=== PATIENT | female | born 1945 | race Caucasian/White ===

== ENCOUNTER → 2017-07-29 | Outpatient (CLI) | payer MEDICARE, OTHER | END | disposition home or self-care (01) | LOC: ECHO 12:59 | DX: J44.1 Chronic obstructive pulmonary disease with (acute) exacerbation (principal); I08.1 Rheumatic disorders of both mitral and tricuspid valves; I27.20 Pulmonary hypertension, unspecified | CPT/HCPCS: 93306 ==

== ENCOUNTER 2018-03-03 11:14 | Inpatient (IN) | payer MEDICARE, OTHER ==
[~2018-03-03] VITALS: Ht 160 cm; Wt 65.1 kg
[2018-03-03] MEDS: IV NORMAL SALINE 1000ML BAG 1,000 ML IV SCH (00:45)
[~2018-03-03 11:14] MED LIST: SULF1TAB24 PO; [UNRECOGNIZED DRUG - CODE] MC
[2018-03-03 15:30] VITALS: BP 130/80
[2018-03-03 15:38] LABS: BASO % 0 % (0-3); EOS # 0.1 x10^3/uL (0.0-0.7); EOS % 1 % (0-3); HEMATOCRIT 39.2 % (36.0-47.0); HEMOGLOBIN 13.9 g/dL (12.0-15.5); LYMPH # 0.6 x10^3/uL (1.0-4.8); LYMPH % 8 % (24-48); MEAN CORPUSCULAR HEMOGLOBIN 31 pg (25-35); MEAN CORPUSCULAR HGB CONC 35 g/dL (31-37); MEAN CORPUSCULAR VOLUME 88 fL (79-100); MONO # 0.7 x10^3/uL (0.0-1.1); MONO % 9 % (0-9); NEUT # 6.9 x10^3uL (1.8-7.7); NEUT % 83 % (31-73); PLATELET COUNT 191 x10^3/uL (140-400); RED BLOOD COUNT 4.45 x10^6/uL (3.50-5.40); RED CELL DISTRIBUTION WIDTH 15.1 % (11.5-14.5); WHITE BLOOD COUNT 8.4 x10^3/uL (4.0-11.0)
[2018-03-03 16:02] LABS: ALBUMIN/GLOBULIN RATIO 0.7 (1.0-1.7); CALCIUM 9.7 mg/dL (8.5-10.1); CREATININE 1.9 mg/dL (0.6-1.0); GFR 26.1; POTASSIUM 5.4 mmol/L (3.5-5.1); TOTAL BILIRUBIN 0.4 mg/dL (0.2-1.0); TOTAL PROTEIN 7.6 g/dL (6.4-8.2)
[2018-03-03 20:18] VITALS: BP 110/72
[2018-03-03 23:49] VITALS: BP 118/74
[2018-03-04] MEDS: IV NORMAL SALINE 1000ML BAG 1,000 ML IV SCH ×2 (05:15→15:15)
[2018-03-04 05:25] LABS: CREATININE 1.7 mg/dL (0.6-1.0); GFR 29.6; POTASSIUM 4.5 mmol/L (3.5-5.1)
[2018-03-04 07:00] VITALS: BP 120/80
[2018-03-04 11:00] VITALS: BP 115/78
[2018-03-04] MEDS: LIDOCAINE (700MG/PATCH) PATCH. TD SCH (12:42)
[2018-03-04] MEDS: ACETAMINOPHEN 325 MG TABLET. PO PRN (12:43)
--- NOTE | 2018-03-04 13:03 | HP ---
ADMIT DATE: 03/03/2018 CHIEF COMPLAINT AND HISTORY OF PRESENT ILLNESS: This is a 73-year-old white female who is well known to me in followup in the office. The patient was admitted with profound and symptomatic hyponatremia with a sodium of 116 in the office. Only history I can obtain that would even explain this would be the fact that she has been drinking extra amounts of water, but only 8 glasses a day due to acute renal insufficiency for which she was last admitted that has not cleared completely. PAST MEDICAL HISTORY: Remarkable for probable chronic kidney disease, although I am not sure what has caused this. She was recently admitted with acute kidney injury and the creatinine has decreased down to the 1.7-1.9 range. She has ongoing edema, but likely venous stasis with sitting in a chair and holding it down all the time. She has a longstanding history of hypertension; however, has not required meds for the last few months due to uncertain etiology on why this has been so good. PAST SURGICAL HISTORY: She has had a history of a hip fracture, arm fracture. MEDICATIONS: Brought with are none on a regular basis. ALLERGIES: SHE IS ALLERGIC TO CODEINE, LISINOPRIL, KEFLEX, AUGMENTIN, BYSTOLIC, NORVASC, BETA BLOCKERS. SOCIAL HISTORY: She does have a pacemaker replacement in the past as well as repair of hip fractures or prior surgical repair. 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 She is , nonsmoker, nondrinker. Does not use drugs. Lives at home and takes care of her disabled son. FAMILY HISTORY: Noncontributory. REVIEW OF SYSTEMS: Remarkable for decreased energy, decreased appetite, listlessness. PHYSICAL EXAMINATION: GENERAL: She is a well-developed, well-nourished white female, in no acute distress. HEAD, EYES, EARS, NOSE AND THROAT: Remarkable for glasses. NECK: Supple, without adenopathy or thyromegaly. CHEST: Clear to auscultation and percussion. HEART: Regular rate and rhythm without S3, S4 or murmur. ABDOMEN: Soft, nontender, without hepatosplenomegaly or mass. EXTREMITIES: Reveal decreased edema, this morning down to the 1-2+ range, but she has been in bed all night long. Does have her wrappings from home on them and I am going to ask wound care to come and see her, although wrapping and leg elevation are her primary treatments for this and she is going to be back sit in her chair when she goes home. NEUROLOGIC: She is intact. LABORATORY DATA: Sodium on admission was 115 and overnight with normal saline has come up to 123, creatinine is 1.9 on admission, 1.7 this morning. Rest of her lab work is essentially unremarkable including a CBC. IMPRESSION: 1. Profound hyponatremia - symptomatic. 2. Other problems listed above. PLAN: The patient has been admitted. Normal saline will be continued. Labs will be followed. Renal will be asked to see her to help sort this out and the patient will be monitored, managed and treated appropriately. VADIM IVAN MD DR: DESEAN/hector JOB#: [id number] / [id number]
--- NOTE | 2018-03-04 13:31 | PDOC2 ---
CONSULT Date of Consult Date of Consult DATE: 03/04/18 TIME: 13:22 Reason for Consult Reason for Consult: Hyponatremia Source Source: Chart review, Patient History of Present Illness Reason for Visit: Pt is 73-year-old white female follows with Jocelynn Dolan . She is admitted with profound and symptomatic hyponatremia with a sodium of 115in the office with c/o listlessness, decreased appetite Pt reports that she had routine labs done at pcp's last week and they have been trying to contact her for abnormal labs. She was told her Renal function and K are stable but Na low and was advised to come to ER She denies any new complaints, she states she was advised to drink 8 glasses of water and she has been doing so since recent dc from Hospital in - had developed MARIO - Creat peaked at 3, at dc 1.7 US that time No hydronephrosis. Mild atrophy of the right kidney.Likely had UTI. Denies any symptoms of UTI, Not on any meds except takes OTC MSM- prn- not new- approved by PCP as per Pt . Denies any RUBIN, No CP, SOB, has lost weight- cut back on icecream and Chocolates. Doesnt use salt . No night sweats, continue to smoke"I dont inhale" [place] intake PMHx significant for -CKD, recent hospitalization for MARIO Cr at dc down to the 1.7-1.9 range , chronic Edema , venous stasis HTN ,pacemaker , history of a hip fracture, arm fracture. Past Medical History Cardiovascular: HTN Pulmonary: No pertinent hx GI: No pertinent hx Heme/Onc: No pertinent hx Hepatobiliary: No pertinent hx Psych: No pertinent hx Rheumatologic: No pertinent hx Infectious disease: No pertinent hx Renal/: No pertinent hx Endocrine: No pertinent hx Past Surgical History Past Surgical History: Other Family History Family History: No Significant, Diabetes, Other Social History ALCOHOL: none Drugs: None Lives: with Family Current Medications Current Medications Current Medications Sodium Chloride 1,000 ml @ 100 mls/hr Q10H IV Last administered on 03/04/18at 05:15; Start 03/03/18 at 19:15 Acetaminophen (Tylenol) 650 mg PRN Q6HRS PRN PO MODERATE PAIN Last administered on 03/04/18at 12:43; Start 03/04/18 at 12:00 Lidocaine (Lidoderm) 1 patch DAILY TD Last administered on 03/04/18at 12:42; Start 03/04/18 at 12:30 Miscellaneous (Lidoderm Patch Removal) 1 ea QHS MC ; Start 03/04/18 at 21:00 Active Scripts Active Reported Magnesium Chloride 2,500 Gm Crystals 2,500 Gm MC Allergies Allergies: Coded Allergies: Beta-Blockers (Beta-Adrenergic Bloc (Verified Allergy, Intermediate, ) Calcium Channel Blocking Agent Dilt (Verified Adverse Reaction, Severe, lower extremity edema, 03/04/18) PACO Inhibitors (Verified Adverse Reaction, Intermediate, leg pain, 03/04/18 ) lidocaine (Verified Adverse Reaction, Intermediate, 03/04/18) "pain intensifies then the numbness lasts for at least a week." codeine (Verified Adverse Reaction, Mild, Nausea, 12/12/14) ROS Review of System As per HPI Physical Exam Physical Exam GEN: NAD HEEN: OM moist NECK: Supple CVS: RRR RESP: CTA, Non labored GI: BS + ve, NO Bruit, Non Tender, : [No CVA tenderness, No Suprapubic Tenderness, No [place] Skin No rash Neuro- Grossly Normal Vital Signs Vital Signs Date Time Temp Pulse Resp B/P (MAP) Pulse Ox O2 Delivery O2 Flow Rate FiO2 03/04/18 08:00 Room Air 03/04/18 07:00 97.4 55 14 120/80 (93) 95 97.4 Assessment & Plan Hyponatremia- At [id number], corrected to 124-? Increased water and Low salt Intake Hold off IV NS , Check UA, Serum and Urine Osm Ur Na, Repeat Na , TSH Rule out UTI, strict I/O Will restrict Fluid intake based on labs Ordered No meds, No ETOH HTN- Not on any BP meds now CKD- Creat 1.3 in 2015 MARIO in - Creat peaked at 3, at dc 1.7 Currently 2.7- may be new baseline Discussed with Pt and RN Labs Labs Laboratory Tests Test 03/03/18 15:25 03/04/18 04:30 White Blood Count 8.4 x10^3/uL (4.0-11.0) Red Blood Count 4.45 x10^6/uL (3.50-5.40) Hemoglobin 13.9 g/dL (12.0-15.5) Hematocrit 39.2 % (36.0-47.0) Mean Corpuscular Volume 88 fL (79-100) Mean Corpuscular Hemoglobin 31 pg (25-35) Mean Corpuscular Hemoglobin Concent 35 g/dL (31-37) Red Cell Distribution Width 15.1 % (11.5-14.5) Platelet Count 191 x10^3/uL (140-400) Neutrophils (%) (Auto) 83 % (31-73) Lymphocytes (%) (Auto) 8 % (24-48) Monocytes (%) (Auto) 9 % (0-9) Eosinophils (%) (Auto) 1 % (0-3) Basophils (%) (Auto) 0 % (0-3) Neutrophils # (Auto) 6.9 x10^3uL (1.8-7.7) Lymphocytes # (Auto) 0.6 x10^3/uL (1.0-4.8) Monocytes # (Auto) 0.7 x10^3/uL (0.0-1.1) Eosinophils # (Auto) 0.1 x10^3/uL (0.0-0.7) Basophils # (Auto) 0.0 x10^3/uL (0.0-0.2) Sodium Level 115 mmol/L (136-145) 123 mmol/L (136-145) Potassium Level 5.4 mmol/L (3.5-5.1) 4.5 mmol/L (3.5-5.1) Chloride Level 81 mmol/L (98-107) 90 mmol/L (98-107) Carbon Dioxide Level 23 mmol/L (21-32) 22 mmol/L (21-32) Anion Gap 11 (6-14) 11 (6-14) Blood Urea Nitrogen 39 mg/dL (7-20) 32 mg/dL (7-20) Creatinine 1.9 mg/dL (0.6-1.0) 1.7 mg/dL (0.6-1.0) Estimated GFR (Cockcroft-Gault) 26.1 29.6 BUN/Creatinine Ratio 21 (6-20) Glucose Level 88 mg/dL (70-99) 68 mg/dL (70-99) Calcium Level 9.7 mg/dL (8.5-10.1) 9.0 mg/dL (8.5-10.1) Total Bilirubin 0.4 mg/dL (0.2-1.0) Aspartate Amino Transf (AST/SGOT) 31 U/L (15-37) Alanine Aminotransferase (ALT/SGPT) 26 U/L (14-59) Alkaline Phosphatase 80 U/L (46-116) Total Protein 7.6 g/dL (6.4-8.2) Albumin 3.0 g/dL (3.4-5.0) Albumin/Globulin Ratio 0.7 (1.0-1.7) Laboratory Tests Test 03/03/18 15:25 03/04/18 04:30 White Blood Count 8.4 x10^3/uL (4.0-11.0) Red Blood Count 4.45 x10^6/uL (3.50-5.40) Hemoglobin 13.9 g/dL (12.0-15.5) Hematocrit 39.2 % (36.0-47.0) Mean Corpuscular Volume 88 fL (79-100) Mean Corpuscular Hemoglobin 31 pg (25-35) Mean Corpuscular Hemoglobin Concent 35 g/dL (31-37) Red Cell Distribution Width 15.1 % (11.5-14.5) Platelet Count 191 x10^3/uL (140-400) Neutrophils (%) (Auto) 83 % (31-73) Lymphocytes (%) (Auto) 8 % (24-48) Monocytes (%) (Auto) 9 % (0-9) Eosinophils (%) (Auto) 1 % (0-3) Basophils (%) (Auto) 0 % (0-3) Neutrophils # (Auto) 6.9 x10^3uL (1.8-7.7) Lymphocytes # (Auto) 0.6 x10^3/uL (1.0-4.8) Monocytes # (Auto) 0.7 x10^3/uL (0.0-1.1) Eosinophils # (Auto) 0.1 x10^3/uL (0.0-0.7) Basophils # (Auto) 0.0 x10^3/uL (0.0-0.2) Sodium Level 115 mmol/L (136-145) 123 mmol/L (136-145) Potassium Level 5.4 mmol/L (3.5-5.1) 4.5 mmol/L (3.5-5.1) Chloride Level 81 mmol/L (98-107) 90 mmol/L (98-107) Carbon Dioxide Level 23 mmol/L (21-32) 22 mmol/L (21-32) Anion Gap 11 (6-14) 11 (6-14) Blood Urea Nitrogen 39 mg/dL (7-20) 32 mg/dL (7-20) Creatinine 1.9 mg/dL (0.6-1.0) 1.7 mg/dL (0.6-1.0) Estimated GFR (Cockcroft-Gault) 26.1 29.6 BUN/Creatinine Ratio 21 (6-20) Glucose Level 88 mg/dL (70-99) 68 mg/dL (70-99) Calcium Level 9.7 mg/dL (8.5-10.1) 9.0 mg/dL (8.5-10.1) Total Bilirubin 0.4 mg/dL (0.2-1.0) Aspartate Amino Transf (AST/SGOT) 31 U/L (15-37) Alanine Aminotransferase (ALT/SGPT) 26 U/L (14-59) Alkaline Phosphatase 80 U/L (46-116) Total Protein 7.6 g/dL (6.4-8.2) Albumin 3.0 g/dL (3.4-5.0) Albumin/Globulin Ratio 0.7 (1.0-1.7) Review All relevant outside records, renal labs, imaging studies, telemetry/EKG's were reviewed. KELLY DANIELS MD Mar 04, 2018 13:31
[2018-03-04 14:52] LABS: CALCIUM 9.1 mg/dL (8.5-10.1); CREATININE 1.7 mg/dL (0.6-1.0); GFR 29.6; POTASSIUM 4.4 mmol/L (3.5-5.1)
[2018-03-04 15:00] VITALS: BP 118/72
[2018-03-04 19:00] VITALS: BP 120/89
[2018-03-04] MEDS: PATCH REMOVAL. MC SCH (21:00)
[2018-03-04 23:00] VITALS: BP 118/76
[2018-03-05 07:59] VITALS: BP 118/79
[2018-03-05] MEDS: LIDOCAINE (700MG/PATCH) PATCH. TD SCH (08:37)
[2018-03-05] MEDS: ACETAMINOPHEN 325 MG TABLET. PO PRN (08:37)
[2018-03-05 10:05] LABS: CALCIUM 9.1 mg/dL (8.5-10.1); CREATININE 1.7 mg/dL (0.6-1.0); GFR 29.6
[2018-03-05 11:45] VITALS: BP 112/74
--- NOTE | 2018-03-05 13:10 | PDOC ---
Renal-Progress Notes Subjective Notes Notes NO NEW COMPLAINTS History of Present Illness Hx of present illness STABLE Vitals Vitals Vital Signs Date Time Temp Pulse Resp B/P (MAP) Pulse Ox O2 Delivery O2 Flow Rate FiO2 03/05/18 08:00 Room Air 03/05/18 07:59 98.4 76 16 118/79 (92) 97 98.4 Weight Weight [ ] I.O. Intake and Output Intake and Output 03/05/18 07:00 Intake Total 1160 ml Output Total 275 ml Balance 885 ml Intake Oral 1160 ml Output Urine Total 275 ml # Voids 5 Labs Labs Laboratory Tests Test 03/04/18 14:10 03/05/18 08:33 Sodium Level 128 mmol/L (136-145) 131 mmol/L (136-145) Potassium Level 4.4 mmol/L (3.5-5.1) 4.0 mmol/L (3.5-5.1) Chloride Level 94 mmol/L (98-107) 97 mmol/L (98-107) Carbon Dioxide Level 23 mmol/L (21-32) 21 mmol/L (21-32) Anion Gap 11 (6-14) 13 (6-14) Blood Urea Nitrogen 32 mg/dL (7-20) 29 mg/dL (7-20) Creatinine 1.7 mg/dL (0.6-1.0) 1.7 mg/dL (0.6-1.0) Estimated GFR (Cockcroft-Gault) 29.6 29.6 Glucose Level 90 mg/dL (70-99) 78 mg/dL (70-99) Serum Osmolality 275 mOsm/Kg (279-304) Calcium Level 9.1 mg/dL (8.5-10.1) 9.1 mg/dL (8.5-10.1) Thyroid Stimulating Hormone (TSH) 1.130 uIU/mL (0.358-3.74) Cortisol AM Sample 26.2 ug/dL (4.3-22.4) Review of Systems Constitutional: yes: alert, oriented Ears/Nose/Throat: Yes: no symptom reported Eyes: Yes: no symptom reported Pulmonary: Yes no symptom reported Cardiovascular: Yes no symptom reported Gastrointestional: Yes: no symptom reported Genitourinary: Yes: no symptom reported Musculoskeletal: Yes: no symptom reported Skin: Yes no symptom reported Psychiatric/Neurological: Yes: no symptom reported Endocrine: Yes: no symptom reported Physical Exam General Appearance: no apparent distress Skin: warm Respiratory: decreased breath sounds Heart: S1S2 Abdomen: soft, bowel sounds present Genitourinary: bladder flat Extremities: pulses present Neurology: alert Assessment Assessment IMP [id number] CKD STAGE 3 - STABLE CR OF 1.7 PLAN CONT SAME AVOID THIAZIDES DRINK TO THIRST ONLY WILL FOLLOW JAZLYN STEELE MD Mar 05, 2018 13:10
[2018-03-05 15:59] VITALS: BP 130/70
[2018-03-05 21:08] VITALS: BP 126/70
[2018-03-05] MEDS: PATCH REMOVAL. MC SCH (21:08)
[2018-03-05 23:53] VITALS: BP 122/72
--- NOTE | 2018-03-06 02:31 | PN ---
DATE: 03/05/2018 LOCATION: She is in room 672. SUBJECTIVE: The patient is awake, alert. We had at least a 20-minute discussion regarding hyponatremia and hyperkalemia and strategies for the same. I explained to her that it really is not any certain drinks or foods that are making a huge difference illness, although she seems to be focused on this being the answer of some sort of drink. She can drink when she believes that it will take care of all of her problems. OBJECTIVE: VITAL SIGNS: Stable. She is afebrile. She is awake and alert. CHEST: Clear. HEART: Regular. ABDOMEN: Benign. LABORATORY DATA: Sodium was up to 128 yesterday and this morning's lab is pending. Normal saline was stopped by renal yesterday with a sodium of 128. Creatinine is stable at 1.7 range. Serum osmolality was decreased to 275. Renal consult is appreciated. I have asked nursing to add PT and OT and check a morning cortisol level this morning in addition. IMPRESSION: 1. Hyponatremia, improving. 2. Anorexia, likely due to hyponatremia with appetite actually doing some improvement. 3. Years of hypertension with no need for blood pressure medicine over the last year or so of uncertain etiology, although she has had a fairly significant weight loss over that time. PLAN: Continue to follow renal lead regarding further management of the hyponatremia and plans to follow. VADIM IVAN MD DR: DESEAN/hector JOB#: [id number] / [id number]
[2018-03-06 05:57] LABS: CALCIUM 8.9 mg/dL (8.5-10.1); CREATININE 1.7 mg/dL (0.6-1.0); GFR 29.6; POTASSIUM 3.7 mmol/L (3.5-5.1)
[2018-03-06 07:00] VITALS: BP 130/60
[2018-03-06] MEDS: LIDOCAINE (700MG/PATCH) PATCH. TD SCH (09:00)
[2018-03-06 11:00] VITALS: BP 113/70
--- NOTE | 2018-03-06 11:42 | PDOC ---
Renal-Progress Notes Subjective Notes Notes NONE History of Present Illness Hx of present illness STABLE Vitals Vitals Vital Signs Date Time Temp Pulse Resp B/P (MAP) Pulse Ox O2 Delivery O2 Flow Rate FiO2 03/06/18 07:00 97.7 75 18 130/60 (83) 95 Room Air 97.7 Weight Weight [ ] I.O. Intake and Output Intake and Output 03/06/18 07:00 Intake Total 1580 ml Output Total 500 ml Balance 1080 ml Intake Oral 1580 ml Output Urine Total 500 ml # Voids 2 Labs Labs Laboratory Tests Test 03/06/18 04:40 Sodium Level 132 mmol/L (136-145) Potassium Level 3.7 mmol/L (3.5-5.1) Chloride Level 99 mmol/L (98-107) Carbon Dioxide Level 22 mmol/L (21-32) Anion Gap 11 (6-14) Blood Urea Nitrogen 26 mg/dL (7-20) Creatinine 1.7 mg/dL (0.6-1.0) Estimated GFR (Cockcroft-Gault) 29.6 Glucose Level 68 mg/dL (70-99) Calcium Level 8.9 mg/dL (8.5-10.1) Review of Systems Constitutional: yes: alert, oriented Ears/Nose/Throat: Yes: no symptom reported Eyes: Yes: no symptom reported Pulmonary: Yes no symptom reported Cardiovascular: Yes no symptom reported Gastrointestional: Yes: no symptom reported Genitourinary: Yes: no symptom reported Musculoskeletal: Yes: no symptom reported Skin: Yes no symptom reported Psychiatric/Neurological: Yes: no symptom reported Endocrine: Yes: no symptom reported Physical Exam General Appearance: no apparent distress Skin: warm Respiratory: decreased breath sounds Heart: S1S2 Abdomen: soft, bowel sounds present Genitourinary: bladder flat Extremities: pulses present Neurology: alert Assessment Assessment IMP [id number] RESOLVED CKD STAGE 3 - STABLE CR OF 1.7 PLAN CONT SAME AVOID THIAZIDES DRINK TO THIRST ONLY WILL FOLLOW JAZLYN STEELE MD Mar 06, 2018 11:42
[2018-03-06] MEDS: ACETAMINOPHEN 325 MG TABLET. PO PRN ×2 (11:49→23:32)
--- NOTE | 2018-03-06 12:05 | PN ---
DATE: 03/06/2018 LOCATION: She is in room 672. SUBJECTIVE: The patient is awake and alert, complaining of some low back pain, which she thinks a Lidoderm patch has helped to some extent. OBJECTIVE: VITAL SIGNS: Stable. She is afebrile. GENERAL: Again, awake and alert. Appetite is improving. CHEST: Clear. HEART: Regular. ABDOMEN: Benign. EXTREMITIES: Edema still at 3+. LABORATORY DATA: Sodium is up to 132 this morning, creatinine is stable at 1.7. Yesterday morning's cortisol level elevated at 26.2. Renal help appreciated with hyponatremia and looks like they are believing it is related to increased fluid intake. ASSESSMENT: 1. Symptomatic hyponatremia, improving. 2. Anorexia, improving, likely related to hyponatremia. 3. Ongoing edema. 4. Elevated a.m. cortisol level. PLAN: We will continue with the patient drinking to thirst only per renal's recommendation. We will check a 4:00 p.m. cortisol level ____ morning and would anticipate possibly discharge tomorrow. VADIM IVAN MD DR: DESEAN/hector JOB#: [id number] / [id number]
[2018-03-06 15:00] VITALS: BP 125/60
[2018-03-06] MEDS: PATCH REMOVAL. MC SCH (19:25)
[2018-03-06 19:41] VITALS: BP 140/86
[2018-03-06 23:30] VITALS: BP 120/86
[2018-03-07] MEDS: LIDOCAINE (700MG/PATCH) PATCH. TD SCH (03:01)
[2018-03-07 03:47] VITALS: BP 116/94
[2018-03-07 05:56] LABS: CALCIUM 9.2 mg/dL (8.5-10.1); CREATININE 1.7 mg/dL (0.6-1.0); GFR 29.6
[2018-03-07 07:49] VITALS: BP 140/80
--- NOTE | 2018-03-07 10:37 | PDOC ---
Renal-Progress Notes Subjective Notes Notes ASLEEP History of Present Illness Hx of present illness BETTER Vitals Vitals Vital Signs Date Time Temp Pulse Resp B/P (MAP) Pulse Ox O2 Delivery O2 Flow Rate FiO2 03/07/18 08:00 Room Air 03/07/18 07:49 97.5 77 18 140/80 (100) 97 97.5 Weight Weight [ ] I.O. Intake and Output Intake and Output 03/07/18 07:00 Intake Total 580 ml Output Total 200 ml Balance 380 ml Intake Oral 580 ml Output Urine Total 200 ml # Voids 2 Labs Labs Laboratory Tests Test 03/07/18 04:20 Sodium Level 132 mmol/L (136-145) Potassium Level 4.0 mmol/L (3.5-5.1) Chloride Level 99 mmol/L (98-107) Carbon Dioxide Level 23 mmol/L (21-32) Anion Gap 10 (6-14) Blood Urea Nitrogen 23 mg/dL (7-20) Creatinine 1.7 mg/dL (0.6-1.0) Estimated GFR (Cockcroft-Gault) 29.6 Glucose Level 70 mg/dL (70-99) Calcium Level 9.2 mg/dL (8.5-10.1) Review of Systems Constitutional: yes: no symptom reported Ears/Nose/Throat: Yes: no symptom reported Eyes: Yes: no symptom reported Pulmonary: Yes no symptom reported Cardiovascular: Yes no symptom reported Gastrointestional: Yes: no symptom reported Genitourinary: Yes: no symptom reported Musculoskeletal: Yes: no symptom reported Skin: Yes no symptom reported Psychiatric/Neurological: Yes: no symptom reported Endocrine: Yes: no symptom reported Physical Exam General Appearance: no apparent distress Skin: warm Respiratory: decreased breath sounds Heart: S1S2 Abdomen: soft, bowel sounds present Genitourinary: bladder flat Extremities: pulses present Assessment Assessment IMP [id number] RESOLVED CKD STAGE 3 - STABLE CR OF 1.7 PLAN CONT SAME AVOID THIAZIDES DRINK TO THIRST ONLY WILL FOLLOW JAZLYN STEELE MD Mar 07, 2018 10:37
[2018-03-07 10:43] VITALS: BP 120/60
--- NOTE | 2018-03-07 16:34 | DS ---
DATE OF DISCHARGE: 03/07/2018 PRIMARY DIAGNOSIS: Severe symptomatic hyponatremia with sodium of 115 on admission. ADDITIONAL DIAGNOSES: Weakness, anorexia secondary to the same; history of hypotension requiring no blood pressure medicines for the last several months or so, still of uncertain etiology, chronic kidney disease with creatinine in the 1.7 range. CHIEF COMPLAINT AND HISTORY OF PRESENT ILLNESS: This 73-year-old white female was admitted with severe symptomatic hyponatremia for further evaluation and treatment. SUMMARY OF STAY: The patient was admitted, started on normal saline at 100 an hour with her sodium coming up to 123. The following day, Renal followed along, stopping that soon thereafter and it continued to climb, leveling out in the 132 range by the time of discharge. Her potassium was 4 at the time of discharge. It was discussed in detail with her that she had been drinking a lot of fluids trying to resolve her chronic kidney disease and making it look better that that may be her etiology. This will be determined upon followup as an outpatient as there really did not seem to be any other problems present to explain this. She was feeling better, eating somewhat better and felt ready for discharge from all perspectives on the and this was accomplished. DISPOSITION: The patient is discharged to home, regular diet, drink only to thirst. She is on no medications. Followup will be within 1 week in the office at which time electrolytes will need to be checked. VADIM IVAN MD DR: DESEAN/hector JOB#: [id number] / [id number]
== END 2018-03-07 14:30 | disposition home or self-care (01) | DRG 641 ==
LOC: 6 SOUTH 13:19
PROVIDERS: ADMIT Family Medicine; ATTEND Family Medicine
DX: E87.1 Hypo-osmolality and hyponatremia (principal); I12.9 Hypertensive chronic kidney disease with stage 1 through stage 4 chronic kidney disease, or unspecified chronic kidney disease; M54.5 Low back pain; I87.8 Other specified disorders of veins; E87.5 Hyperkalemia; N18.3 Chronic kidney disease, stage 3 (moderate); Z83.3 Family history of diabetes mellitus; Z95.0 Presence of cardiac pacemaker; Z79.899 Other long term (current) drug therapy; Z88.6 Allergy status to analgesic agent; Z88.1 Allergy status to other antibiotic agents; Z88.8 Allergy status to other drugs, medicaments and biological substances; Z87.81 Personal history of (healed) traumatic fracture
CPT/HCPCS: 36415; 80048; 80053; 82533; 83930; 84443; 85025; J7030